=== PATIENT | male | born 1980 | race African-American/Black ===

== ENCOUNTER 2018-03-30 01:34 | Emergency (ER) | payer SELFPAY ==
[~2018-03-30] VITALS: Ht 180.3 cm; Wt 65.8 kg
[2018-03-30] MEDS ORDERED: AZITHROMYCIN 250 MG TAB PO ONE (03:00)
[2018-03-30] MEDS ORDERED: cefTRIAXone SOD 1,000 MG VL IM ONE (03:00)
[2018-03-30 03:45] VITALS: BP 135/78
== END 2018-03-30 03:44 | disposition home or self-care (01) ==
LOC: ER 01:34
DX: L73.9 Follicular disorder, unspecified (principal)
CPT/HCPCS: 96372; 99283; J0696

== ENCOUNTER 2018-04-02 09:06 | Emergency (ER) | payer SELFPAY ==
[~2018-04-02] VITALS: Ht 167.6 cm; Wt 66.7 kg
[2018-04-02 09:26] VITALS: BP 97/48
[2018-04-02] MEDS ORDERED: LIDOCAINE 1% HCL (LOCAL ANESTH.) INJ 20ML MDV IJ ONE (09:45)
== END 2018-04-02 10:07 | disposition home or self-care (01) ==
LOC: ER 09:11
DX: N49.2 Inflammatory disorders of scrotum (principal)
CPT/HCPCS: 55100; 99284; J2001

== ENCOUNTER 2018-04-07 21:02 | Emergency (ER) | payer SELFPAY ==
[~2018-04-07] VITALS: Ht 167.6 cm; Wt 69.4 kg
[2018-04-07 21:27] VITALS: BP 90/87
[2018-04-08] MEDS: IBUPROFEN 800 MG TAB PO ONE (02:19)
== END 2018-04-08 02:15 | disposition home or self-care (01) ==
LOC: ER 21:02
DX: L02.214 Cutaneous abscess of groin (principal)
CPT/HCPCS: 99282; A6257